=== PATIENT | female | born 2000 | race Two or more races ===

== ENCOUNTER 2024-06-28 07:52 | Emergency (ER) | payer MEDICAID ==
[~2024-06-28] VITALS: Ht 154.9 cm; Wt 92.3 kg
[2024-06-28] MEDS ORDERED: IXEK80AU2 SQ (07:57)
[2024-06-28 08:21] LABS: BASOPHILS % (AUTO) 0.4 % (0.0-2.0); EOSINOPHILS % (AUTO) 0.6 % (1.0-6.0); HEMOGLOBIN 13.8 g/dL (12.0-16.0); LYMPHOCYTES # (AUTO) 0.6 K/uL (1.0-4.8); LYMPHOCYTES % (AUTO) 11.8 % (22.0-44.0); MEAN CORPUSCULAR HEMOGLOBIN 29.6 pg (26.0-34.0); MEAN CORPUSCULAR HGB CONC 34.6 G/dL (31.0-37.0); MEAN CORPUSCULAR VOLUME 86 fL (80-100); MONOCYTES # (AUTO) 0.8 K/uL (0.1-1.0); MONOCYTES % (AUTO) 14.5 % (2.0-9.0); NEUTROPHILS # (AUTO) 3.8 K/uL (1.8-7.7); NEUTROPHILS % (AUTO) 72.7 % (40.0-70.0); PLATELET COUNT (AUTO) 232 K/uL (150-450); RED BLOOD CELL COUNT(AUTO) 4.66 MIL/uL (4.00-5.20); RED CELL DISTRIBUTION WIDTH 13.8 % (11.5-14.5); WHITE BLOOD COUNT (AUTO) 5.2 K/uL (4.5-11.0)
[2024-06-28 08:25] LABS: COVID AG,FIA SOURCE NASAL SWAB
[2024-06-28 08:30] LABS: ANION GAP 8 mmol/L (8-16); CALCIUM, TOTAL 8.6 mg/dL (8.8-10.5); CARBON DIOXIDE 27 mmol/L (22-29); CHLORIDE 101 mmol/L (98-107); CREATININE 0.77 mg/dL (0.60-1.30); GLOMERULAR FILTR. RATE CALC > 60 mL/min (>60); GLUCOSE,RANDOM 97 mg/dL (70-110); POTASSIUM 3.7 mmol/L (3.5-5.1); SODIUM SERUM 136 mmol/L (136-145); UREA NITROGEN, BLOOD 8 mg/dL (7-18)
[2024-06-28 08:31] LABS: LIPASE 30 U/L (16-77)
[2024-06-28] MEDS: KETOROLAC TROMETHAMINE 60 MG/2 ML VIAL IM ONE (09:01)
[2024-06-28] MEDS: ACETAMINOPHEN 325 MG TABLET PO ONE (09:02)
[2024-06-28 09:10] LABS: SARS-COV2 (COVID) ANTIGEN,FIA Negative (Negative)
[2024-06-28 09:11] LABS: INFLUENZA TYPE B NEGATIVE FOR TYPE B (NEGATIVE)
[2024-06-28 09:54] LABS: INFLUENZA TYPE A POSITIVE FOR TYPE A (NEGATIVE)
[2024-06-28 10:42] VITALS: BP 116/70; PULSE 114; RESP 18; TEMP 98.6; O2SAT 98
[2024-06-28] MEDS ORDERED: IBUP-1492 PO (11:55)
[2024-06-28] MEDS ORDERED: ONDA-104 PO (11:55)
[2024-06-28] MEDS ORDERED: OSEL75CA45 PO (11:55)
== END 2024-06-28 12:02 | disposition home or self-care (01) ==
LOC: EMS 07:56
DX: J10.1 Influenza due to other identified influenza virus with other respiratory manifestations (principal); E78.00 Pure hypercholesterolemia, unspecified; F12.90 Cannabis use, unspecified, uncomplicated; Z20.822 Contact with and (suspected) exposure to COVID-19
CPT/HCPCS: 99283; 87426; 80048; 83690; 84703; 85025; 87804; 36415; 96372; J1885